=== PATIENT | male | born 1955 | race Caucasian/White ===

== ENCOUNTER 2018-07-24 14:05 | Inpatient (IN) | payer BC ==
[2018-07-24 16:19] VITALS: BMI 21.2
[2018-07-24] MEDS ORDERED: MECLIZINE HCL 12.5 MG TABLET PO PRN (17:44)
--- NOTE | 2018-07-24 17:51 | HP ---
CIWA Score - CIWA Score Nausea/Vomitin-Int. Nausea w/Dry Heave Muscle Tremors: 4-Moderate,w/Arms Extend Anxiety: 3 Agitation: 3 Paroxysmal Sweats: 2 Orientation: 1-Uncertain about Date (no distress) Tacttile Disturbances: 0-None Auditory Disturbances: 0-None Visual Disturbances: 0-None Headache: 1-Very Mild CIWA-Ar Total Score: 18 Admission ROS BHS - HPI Chief Complaint: alcohol withdrawal symptoms Allergies/Adverse Reactions: Allergies Allergy/AdvReac Type Severity Reaction Status Date / Time No Known Allergies Allergy Verified 07/24/18 17:43 History of Present Illness: 63 yo , Polish speaking only, male with hx of nicotine and alcohol dependence is here for detox. Reports hx of frequent falls secondary to alcohol intoxication with last last fall 07/23/18. Patient was evaluate at [facility] 07/23/18 and released today after evaluate for alcohol intoxication. Reports last detox and rehabilitation 1.5 years ago, does not recall the name of the facility, reports managed to stay sober for nine months. PMHX: GERD,anemia, depression and anxiety. Denies suicidal / homicidal ideation at this time. Reports hx of frequent suicidal thoughts. Denies hx of suicide attempts. Exam Limitations: No Limitations - Ebola screening Have you traveled outside of the country in the last 21 days: No Have you had contact with anyone from an Ebola affected area: No Have you been sick,other than usual withdrawal symptoms: No Do you have a fever: No - Review of Systems Constitutional: Chills, Loss of Appetite, Changes in sleep, Weakness, Unintentional Wgt. Loss, Other (vertigo) EENT: reports: Blurred Vision (uses glasses), Dental Problems (edentulous) Respiratory: reports: No Symptoms reported Cardiac: reports: No Symptoms Reported GI: reports: Poor Appetite, Poor Fluid Intake, Indigestion : reports: No Symptoms Reported Musculoskeletal: reports: Joint Pain Integumentary: reports: No Symptoms Reported Neuro: reports: Tremors, Weakness, Dizziness Endocrine: reports: See HPI, Increased Thirst Hematology: reports: See HPI Psychiatric: reports: Orientated x3, Depressed Other Systems: Reviewed and Negative Patient History - Patient Medical History Hx Anemia: Yes (no meds ) Hx Asthma: No Hx Chronic Obstructive Pulmonary Disease (COPD): No Hx Cancer: No Hx Cardiac Disorders: No Hx Congestive Heart Failure: No Hx Hypertension: No Hx Hypercholesterolemia: No Hx Pacemaker: No HX Cerebrovascular Accident: No Hx Seizures: No Hx Dementia: No Hx Diabetes: No Hx Gastrointestinal Disorders: No Hx Liver Disease: No Hx Genitourinary Disorders: No Hx Sexually Transmitted Disorders: No Hx Renal Disease (ESRD): No Hx Thyroid Disease: No Hx Human Immunodeficiency Virus (HIV): No (last tested six month neg results) Hx Hepatitis C: No Hx Depression: Yes Hx Suicide Attempt: No Hx Bipolar Disorder: No Hx Schizophrenia: No - Patient Surgical History Past Surgical History: Yes Hx Neurologic Surgery: No Hx Cataract Extraction: No Hx Cardiac Surgery: No Hx Lung Surgery: No Hx Breast Surgery: No Hx Breast Biopsy: No Hx Abdominal Surgery: No Hx Appendectomy: No Hx Cholecystectomy: No Hx Genitourinary Surgery: No Hx Section: No Hx Orthopedic Surgery: No Hx Hysterectomy: No Other Surgical History: hx exploratory abdominal sx s/p GI bleed 1998 - PPD History Previous Implant?: No Documented Results: Negative w/o proof PPD to be Administered?: Yes - Smoking Cessation Smoking history: Current every day smoker Have you smoked in the past 12 months: Yes Aproximately how many cigarettes per day: 11 Hx Chewing Tobacco Use: No Initiated information on smoking cessation: Yes 'Breaking Loose' booklet given: 07/24/18 - Substance & Tx. History Hx Alcohol Use: Yes Hx Substance Use: Yes Substance Use Type: Alcohol Hx Substance Use Treatment: Yes ([facility], does not recall facility) - Substances Abused Alcohol Route: Oral Frequency: Daily Amount used: 2 pints vodka Age of first use: 42 Date of Last Use: 07/23/18 Family Disease History - Family Disease History Family Disease History: Diabetes: Brother (), Other: Father ( alcoholism ), Brother Admission Physical Exam BHS - Vital Signs Vital Signs: Vital Signs - 24 hr 07/24/18 16:17 Temperature 98.3 F Pulse Rate 89 Respiratory 16 Rate Blood Pressure 142/95 - Physical General Appearance: Yes: Disheveled, Moderate Distress, Tremorous, Anxious HEENTM: Yes: EOMI, Hearing grossly Normal, Normocephalic, Normal Voice, RYANN, Pharynx Normal, Tm's normal, Other (edentulous) Respiratory: Yes: Chest Non-Tender, Lungs Clear, Normal Breath Sounds, No Respiratory Distress, No Accessory Muscle Use Neck: Yes: Within Normal Limits Breast: Yes: Breast Exam Deferred Cardiology: Yes: Regular Rhythm, Regular Rate Abdominal: Yes: Normal Bowel Sounds, Non Tender, Flat, Soft Genitourinary: Yes: Within Normal Limits Back: Yes: Normal Inspection Musculoskeletal: Yes: full range of Motion, Gait Steady, Pelvis Stable Extremities: Yes: Normal Capillary Refill, Normal Inspection, Normal Range of Motion, Non-Tender Neurological: Yes: bookkeeping clerk II-XII NML intact, Fully Oriented, Alert, Motor Strength 5/5, Depressed Affect Integumentary: Yes: Normal Color, Dry, Warm Lymphatic: Yes: Within Normal Limits - Diagnostic (1) Alcohol dependence with withdrawal Current Visit: Yes Status: Acute Qualifiers: Complication of substance-induced condition: uncomplicated Qualified Code(s ): F10.230 - Alcohol dependence with withdrawal, uncomplicated (2) GERD (gastroesophageal reflux disease) Current Visit: Yes Status: Chronic Qualifiers: Esophagitis presence: without esophagitis Qualified Code(s): K21.9 - Gastro -esophageal reflux disease without esophagitis (3) Vertigo Current Visit: Yes Status: Acute (4) History of fall Current Visit: Yes Status: Chronic (5) Anemia Current Visit: Yes Status: Suspected Qualifiers: Anemia type: unspecified type Qualified Code(s): D64.9 - Anemia, unspecified (6) Depression Current Visit: Yes Status: Suspected Qualifiers: Depression Type: unspecified Qualified Code(s): F32.9 - Major depressive disorder, single episode, unspecified Cleared for Admission S - Detox or Rehab [facility] Level of Care: Medically Managed Detox Regimen/Protocol: Librium [facility] Breath Alcohol Content Breath Alcohol Content: 0 Urine Drug Screen - Results Drug Screen Negative: No Urine Drug Screen Results: BZO-Benzodiazepines
[2018-07-24] MEDS ORDERED: MAG HYDROX/AL HYDROX/SIMETH 30 ML UNIT-DOSE CUP PO PRN (18:07)
[2018-07-24] MEDS ORDERED: MENTHOL/PHENOL 1 EACH UD MM PRN (18:07)
[2018-07-24] MEDS ORDERED: P-EPHED 60MG/TRIPROLIDI 2.5MG TABLET PO PRN (18:07)
[2018-07-24] MEDS ORDERED: MAGNESIUM CITRATE 300 ML BOTTLE PO PRN (18:07)
[2018-07-24] MEDS ORDERED: IBUPROFEN 400 MG TABLET (FP) PO PRN (18:07)
[2018-07-24] MEDS ORDERED: chlordiazePOXIDE HCL 25 MG CAPSULE PO PRN (18:07)
[2018-07-24] MEDS ORDERED: guaiFENesin/D-METHORPHAN HB 10 ML UNIT-DOSE CUPS PO PRN (18:07)
[2018-07-24] MEDS ORDERED: MAGNESIUM HYDROX 2400MG/30ML ORAL SUSPENSION 30 ML CUP PO PRN (18:07)
[2018-07-24] MEDS ORDERED: LOPERAMIDE HCL 2 MG CAPSULE PO PRN (18:07)
[2018-07-24] MEDS ORDERED: NICOTINE POLACRILEX 2 MG GUM BC PRN (18:07)
[2018-07-24] MEDS ORDERED: ONDANSETRON *ODT* 4 MG TABLET SL PRN (18:11)
[2018-07-24] MEDS ORDERED: chlordiazePOXIDE HCL 25 MG CAPSULE PO ONE (18:45)
[2018-07-24] MEDS: chlordiazePOXIDE HCL 25 MG CAPSULE PO SCH (22:27)
[2018-07-24] MEDS: BACLOFEN 10 MG TABLET (FP) PO SCH (22:27)
[2018-07-24] MEDS: THIAMINE HCL 100 MG TABLET (FP) PO SCH (22:27)
[2018-07-25] MEDS: chlordiazePOXIDE HCL 25 MG CAPSULE PO SCH ×4 (05:16→22:21)
[2018-07-25 10:00] LABS: HEMATOCRIT 34.6 % (35.4-49); HEMOGLOBIN 11.8 GM/dL (11.7-16.9); MCH 33.2 pg (25.7-33.7); MCHC 34.1 g/dl (32.0-35.9); MEAN CELL VOLUME 97.4 fl (80-96); PLATELET COUNT 103 K/MM3 (134-434); RBC 3.56 M/mm3 (4.00-5.60); RDW 16.7 % (11.9-15.9)
[2018-07-25] MEDS: BACLOFEN 10 MG TABLET (FP) PO SCH ×2 (10:22→22:21)
[2018-07-25] MEDS: PRENATAL VITAMINS W/ FOLIC ACID TABLET (FP) PO SCH (10:22)
[2018-07-25] MEDS: NICOTINE 14 MG/24 HOURS TOPICAL PATCH TD SCH (10:23)
[2018-07-25 10:54] LABS: ALBUMIN 3.5 g/dl (3.4-5.0); ALK PHOS 124 U/L (45-117); ANION GAP 13 MMOL/L (8-16); BILIRUBIN,TOTAL 0.6 mg/dL (0.2-1); BLOOD UREA NITROGEN 8 mg/dL (7-18); CALCIUM 9.8 mg/dL (8.5-10.1); CHLORIDE 97 mmol/L (98-107); CO2 27 mmol/L (21-32); CREATININE 0.5 mg/dL (0.55-1.3); GLUCOSE,RANDOM 84 mg/dL (74-106); POTASSIUM 3.7 mmol/L (3.5-5.1); SGOT/AST 123 U/L (15-37); SGPT/ALT 110 U/L (13-61); SODIUM 136 mmol/L (136-145); TOT PROT 6.2 g/dl (6.4-8.2)
--- NOTE | 2018-07-25 11:44 | EKG ---
Test Reason : Blood Pressure : / mmHG Vent. Rate : 115 BPM Atrial Rate : 115 BPM P-R Int : 208 ms QRS Dur : 088 ms QT Int : 294 ms P-R-T Axes : 067 059 058 degrees QTc Int : 406 ms SINUS TACHYCARDIA OTHERWISE NORMAL ECG NO PREVIOUS ECGS AVAILABLE Confirmed by JAMES PARRA, ROGER ([id number]) on 07/25/2018 11:44:11 AM Referred By: Confirmed By:ROGER RAMIREZ MD
--- NOTE | 2018-07-25 12:49 | CONSULT ---
[facility] Psychiatric Consult - Data Date of interview: 07/25/18 Admission source: [facility] Identifying data: Patient is a 63 year old single male, father of five, domiciled, currently unemployed but plans on returning to work after completion of detox/rehab. This is patient's first admission to detox at [facility]. Pt. admitted to for alcohol dependence. Substance Abuse History: Smoking Cessation. Smoking history: Current every day smoker. Have you smoked in the past 12 months: Yes. Aproximately how many cigarettes per day: 11. Hx Chewing Tobacco Use: No. Initiated information on smoking cessation: Yes. 'Breaking Loose' booklet given: 07/24/18. - Substance & Tx. History. Hx Alcohol Use: Yes. Hx Substance Use: Yes. Substance Use Type : Alcohol. Hx Substance Use Treatment: Yes ([facility], does not recall facility). - Substances Abused. Alcohol. Route : Oral. Frequency: Daily. Amount used: 2 pints vodka. Age of first use: 42. Date of Last Use: 07/23/18 Medical History: Anemia, hx exploratory abdominal sx s/p GI bleed 1998 Psychiatric History: Patient reports one psychiatric hospitalization two years ago at [facility] for depression. He reports taking medications for depression and anxiety but is unable to recall the names of the medications. Mr. Echeverria last took psychotrophic medications over one year ago. He denies h/o suicide attempt but has endorsed suicidal ideation in the past. Patient denies urges or thoughts to hurt self or others. Physical/Sexual Abuse/Trauma History: denies. Mental Status Exam - Mental Status Exam Alert and Oriented to: Time, Place, Person Cognitive Function: Good Patient Appearance: Well Groomed Mood: Euthymic Affect: Mood Congruent Patient Behavior: Cooperative Speech Pattern: Appropriate (sami speaking) Voice Loudness: Normal Thought Process: Intact, Goal Oriented Thought Disorder: Not Present Hallucinations: Denies Suicidal Ideation: Denies Homicidal Ideation: Denies Insight/Judgement: Poor Sleep: Fair Appetite: Fair Muscle strength/Tone: Normal Gait/Station: Other (Did not observe patient's gait.) Psychiatric Findings - Problem List ([place] 1, 2,3) (1) Alcohol-induced mood disorder Current Visit: Yes Status: Acute (2) Alcohol dependence with withdrawal Current Visit: Yes Status: Acute Qualifiers: Complication of substance-induced condition: uncomplicated Qualified Code(s ): F10.230 - Alcohol dependence with withdrawal, uncomplicated - Initial Treatment Plan Initial Treatment Plan: Psychoeducation provided. Detoxification in progress. Observation.
[2018-07-25] MEDS: MECLIZINE HCL 12.5 MG TABLET PO SCH ×3 (13:12→23:00)
--- NOTE | 2018-07-25 15:39 | PN ---
S CIWA - CIWA Score Nausea/Vomitin-No Nausea/No Vomiting Muscle Tremors: 2 Anxiety: 1-Mildly Anxious Agitation: 0-Normal Activity Paroxysmal Sweats: No Perspiration Orientation: 0-Oriented Tacttile Disturbances: 0-None Auditory Disturbances: 0-None Visual Disturbances: 0-None Headache: 0-None Present CIWA-Ar Total Score: 3 BHS Progress Note (SOAP) Subjective: PATIENT C/O DIZZINESS, MILD ANXIETY AND "SHAKES". Objective: 07/25/18 15:37 Laboratory Tests 07/25/18 07/25/18 07/25/18 07:30 07:30 07:30 WBC 4.0 RBC 3.56 L Hgb 11.8 Hct 34.6 L MCV 97.4 H MCH 33.2 MCHC 34.1 RDW 16.7 H Plt Count 103 L MPV 10.0 Sodium 136 Potassium 3.7 Chloride 97 L Carbon Dioxide 27 Anion Gap 13 BUN 8 Creatinine 0.5 L Creat Clearance w eGFR > 60 Random Glucose 84 Calcium 9.8 Total Bilirubin 0.6 AST 123 H ALT 110 H Alkaline Phosphatase 124 H Total Protein 6.2 L Albumin 3.5 RPR Titer Nonreactive Vital Signs Temperature 96.6 F L 07/25/18 14:21 Pulse Rate 92 H 07/25/18 14:21 Respiratory Rate 16 07/25/18 14:21 Blood Pressure 113/63 07/25/18 14:21 O2 Sat by Pulse Oximetry (%) PE: ALERT AND ORIENTED SKIN WARM AND DRY CAR S1S2 RESP CTA BL NEURO +PERRLA, EOMS INTACT, [id number] GROSSLY INTACT Assessment: 07/25/18 15:37 WITHDRAWAL SYNDROME DIZZINESS Plan: CONTINUE DETOX PER PROTOCOL CHANGED MECLIZINE FROM PRN TO SCHEDULED ENCOURAGE ORAL FLUIDS CONTINUE TO MONITOR CLINICALLY
[2018-07-25] MEDS: THIAMINE HCL 100 MG TABLET (FP) PO SCH (22:21)
[2018-07-26] MEDS: MELATONIN 5 MG TABLETS PO PRN ×2 (00:41→22:17)
[2018-07-26] MEDS: chlordiazePOXIDE HCL 25 MG CAPSULE PO SCH ×3 (04:52→17:30)
[2018-07-26] MEDS: MECLIZINE HCL 12.5 MG TABLET PO SCH ×4 (06:40→23:11)
[2018-07-26] MEDS: PRENATAL VITAMINS W/ FOLIC ACID TABLET (FP) PO SCH (10:09)
[2018-07-26] MEDS: BACLOFEN 10 MG TABLET (FP) PO SCH ×2 (10:09→22:15)
[2018-07-26] MEDS: NICOTINE 14 MG/24 HOURS TOPICAL PATCH TD SCH (10:10)
--- NOTE | 2018-07-26 11:27 | PN ---
S CIWA - CIWA Score Nausea/Vomitin-No Nausea/No Vomiting Muscle Tremors: None Anxiety: 2 Agitation: 0-Normal Activity Paroxysmal Sweats: No Perspiration Orientation: 0-Oriented Tacttile Disturbances: 0-None Auditory Disturbances: 0-None Visual Disturbances: 0-None Headache: 0-None Present CIWA-Ar Total Score: 2 BHS Progress Note (SOAP) Subjective: Patient anxious but reports reduced dizziness. Objective: 07/26/18 11:26 Laboratory Tests 07/25/18 07/25/18 07/25/18 07:30 07:30 07:30 WBC 4.0 RBC 3.56 L Hgb 11.8 Hct 34.6 L MCV 97.4 H MCH 33.2 MCHC 34.1 RDW 16.7 H Plt Count 103 L MPV 10.0 Sodium 136 Potassium 3.7 Chloride 97 L Carbon Dioxide 27 Anion Gap 13 BUN 8 Creatinine 0.5 L Creat Clearance w eGFR > 60 Random Glucose 84 Calcium 9.8 Total Bilirubin 0.6 AST 123 H ALT 110 H Alkaline Phosphatase 124 H Total Protein 6.2 L Albumin 3.5 RPR Titer Nonreactive Vital Signs Temperature 97.7 F 07/26/18 09:15 Pulse Rate 82 07/26/18 09:15 Respiratory Rate 18 07/26/18 09:15 Blood Pressure 110/67 07/26/18 09:15 O2 Sat by Pulse Oximetry (%) pe: skin warm and dry alert and oriented x 3 car s1s2 resp cta bl neuro +perrla, EOMS intact bl Assessment: 07/26/18 11:26 dizziness improving withdrawal syndrome Plan: detox as ordered continue meclizine continue to monitor clinically
[2018-07-26] MEDS: THIAMINE HCL 100 MG TABLET (FP) PO SCH (22:15)
[2018-07-26] MEDS: chlordiazePOXIDE 5 MG CAPSULE PO SCH (22:15)
[2018-07-27] MEDS: MECLIZINE HCL 12.5 MG TABLET PO SCH ×4 (05:57→23:33)
[2018-07-27] MEDS: chlordiazePOXIDE 5 MG CAPSULE PO SCH ×3 (05:57→17:35)
[2018-07-27 09:51] LABS: URINE APPEARANCE CLOUDY; URINE BILIRUBIN NEGATIVE (<2.0 mg/dL); URINE GLUCOSE (UA) NEGATIVE (NEGATIVE); URINE KETONE NEGATIVE (NEGATIVE); URINE LEUK ESTERASE NEGATIVE (NEGATIVE); URINE NITRITE NEGATIVE (NEGATIVE); URINE PROTEIN NEGATIVE (NEGATIVE); URINE UROBILINOGEN NEGATIVE mg/dL (0.2-1.0)
[2018-07-27 09:55] LABS: URINE COLOR DK YELLOW
[2018-07-27] MEDS: NICOTINE 14 MG/24 HOURS TOPICAL PATCH TD SCH (10:15)
[2018-07-27] MEDS: BACLOFEN 10 MG TABLET (FP) PO SCH ×2 (10:15→22:16)
[2018-07-27] MEDS: PRENATAL VITAMINS W/ FOLIC ACID TABLET (FP) PO SCH (10:15)
--- NOTE | 2018-07-27 10:58 | PN ---
S Progress Note Note: PATIENT TOLERATING DETOX WELL. ALERT AND ORIENTED X 3. AMBULATORY AD [place]. STATES DIZZINESS IMPROVED WITH MEDICATION. DENIES HEADACHE, CP, SOB AND DIZZINESS. Vital Signs Temperature 98.5 F 07/27/18 09:13 Pulse Rate 76 07/27/18 09:13 Respiratory Rate 16 07/27/18 09:13 Blood Pressure 94/64 07/27/18 09:13 O2 Sat by Pulse Oximetry (%) PE: ALERT AND ORIENTED X 3 SKIN AFEBRILE, WARM AND DRY CAR S1S2 RESP CTA BL EXT NO EDEMA, FULL ROM, NO VISIBLE TREMORS A/P: WITHDRAWAL SYNDROME CONTINUE DETOX ORDERED ENCOURAGED ORAL FLUIDS CONTINUE TO MONITOR CLINICALLY
[2018-07-27] MEDS ORDERED: chlordiazePOXIDE 5 MG CAPSULE PO ONE (17:20)
[2018-07-27] MEDS: THIAMINE HCL 100 MG TABLET (FP) PO SCH (22:15)
[2018-07-27] MEDS: chlordiazePOXIDE HCL 10 MG CAPSULE PO SCH (22:15)
[2018-07-28] MEDS: chlordiazePOXIDE HCL 10 MG CAPSULE PO SCH (05:58)
[2018-07-28] MEDS: MECLIZINE HCL 12.5 MG TABLET PO SCH (05:58)
[2018-07-28 06:16] VITALS: BP 102/60; PULSE 76; TEMP 98.3
--- NOTE | 2018-07-28 12:43 | DS ---
[facility] Detox Discharge Summary Admission Date: 07/24/18 Discharge Date: 07/28/18 - History Present History: Alcohol Dependence Pertinent Past History: Depression - Physical Exam Results Vital Signs: Vital Signs Temperature 98.3 F 07/28/18 06:15 Pulse Rate 76 07/28/18 06:15 Respiratory Rate 16 07/28/18 06:15 Blood Pressure 102/60 07/28/18 06:15 O2 Sat by Pulse Oximetry (%) Pertinent Admission Physical Exam Findings: Withdrawal sx Laboratory Last Values WBC 4.0 K/mm3 (4.0-10.0) 07/25/18 07:30 RBC 3.56 M/mm3 (4.00-5.60) L 07/25/18 07:30 Hgb 11.8 GM/dL (11.7-16.9) 07/25/18 07:30 Hct 34.6 % (35.4-49) L 07/25/18 07:30 MCV 97.4 fl (80-96) H 07/25/18 07:30 MCH 33.2 pg (25.7-33.7) 07/25/18 07:30 MCHC 34.1 g/dl (32.0-35.9) 07/25/18 07:30 RDW 16.7 % (11.9-15.9) H 07/25/18 07:30 Plt Count 103 K/MM3 (134-434) L 07/25/18 07:30 MPV 10.0 fl (7.5-11.1) 07/25/18 07:30 Sodium 136 mmol/L (136-145) 07/25/18 07:30 Potassium 3.7 mmol/L (3.5-5.1) 07/25/18 07:30 Chloride 97 mmol/L (98-107) L 07/25/18 07:30 Carbon Dioxide 27 mmol/L (21-32) 07/25/18 07:30 Anion Gap 13 MMOL/L (8-16) 07/25/18 07:30 BUN 8 mg/dL (7-18) 07/25/18 07:30 Creatinine 0.5 mg/dL (0.55-1.3) L 07/25/18 07:30 Creat Clearance w eGFR > 60 (>60) 07/25/18 07:30 Random Glucose 84 mg/dL (74-106) 07/25/18 07:30 Calcium 9.8 mg/dL (8.5-10.1) 07/25/18 07:30 Total Bilirubin 0.6 mg/dL (0.2-1) 07/25/18 07:30 AST 123 U/L (15-37) H 07/25/18 07:30 ALT 110 U/L (13-61) H 07/25/18 07:30 Alkaline Phosphatase 124 U/L (45-117) H 07/25/18 07:30 Total Protein 6.2 g/dl (6.4-8.2) L 07/25/18 07:30 Albumin 3.5 g/dl (3.4-5.0) 07/25/18 07:30 Urine Color Dk yellow 07/26/18 07:40 Urine Appearance Cloudy 07/26/18 07:40 Urine pH 8.0 (5.0-8.0) 07/26/18 07:40 Ur Specific [place] 1.019 (1.001-1.035) 07/26/18 07:40 Urine Protein Negative (NEGATIVE) 07/26/18 07:40 Urine Glucose (UA) Negative (NEGATIVE) 07/26/18 07:40 Urine Ketones Negative (NEGATIVE) 07/26/18 07:40 Urine Blood Negative (NEGATIVE) 07/26/18 07:40 Urine Nitrite Negative (NEGATIVE) 07/26/18 07:40 Urine Bilirubin Negative (<2.0 mg/dL) 07/26/18 07:40 Urine Urobilinogen Negative mg/dL (0.2-1.0) 07/26/18 07:40 Ur Leukocyte Esterase Negative (NEGATIVE) 07/26/18 07:40 RPR Titer Nonreactive (NONREACTIVE) 07/25/18 07:30 Labs noted - Treatment Hospital Course: Detox Protocol Followed, Detoxed Safely, Responded well, Discharged Condition Good - Medication Discharge Medications: Ambulatory Orders NK [No Known Home Medication] 07/24/18 - Diagnosis (1) Nicotine dependence Status: Acute (2) Alcohol dependence with withdrawal Status: Acute Qualifiers: Complication of substance-induced condition: uncomplicated Qualified Code(s ): F10.230 - Alcohol dependence with withdrawal, uncomplicated (3) Alcohol-induced mood disorder Status: Acute (4) GERD (gastroesophageal reflux disease) Status: Chronic Qualifiers: Esophagitis presence: without esophagitis Qualified Code(s): K21.9 - Gastro -esophageal reflux disease without esophagitis (5) Depression Status: Suspected Qualifiers: Depression Type: unspecified Qualified Code(s): F32.9 - Major depressive disorder, single episode, unspecified - AMA Did Patient Leave Against Medical Advice: No
== END 2018-07-28 09:35 | disposition home or self-care (01) | DRG 775 ==
LOC: YASAS 14:05 → Y3N 18:24
PROC: HZ2ZZZZ Detoxification Services for Substance Abuse Treatment (ICD-10-PCS; principal; 2018-07-24)
DX: F10.230 Alcohol dependence with withdrawal, uncomplicated (principal); F10.24 Alcohol dependence with alcohol-induced mood disorder; F17.210 Nicotine dependence, cigarettes, uncomplicated; F32.9 Major depressive disorder, single episode, unspecified; K21.9 Gastro-esophageal reflux disease without esophagitis; R42 Dizziness and giddiness; D64.9 Anemia, unspecified; R29.6 Repeated falls
CPT/HCPCS: 36415; 80053; 81003; 85027; 86593; 93005; 93010; J0475